=== PATIENT | male | born 2000 ===

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

== ENCOUNTER 2018-08-05 01:43 | Inpatient (IN) | payer SELFPAY ==
[2018-08-05 01:53] VITALS: O2SAT 99
[2018-08-05 02:16] LABS: BASO # 0.1 K/uL (0.0-0.2); BASO % 0.2 % (0.0-2.0); HEMOGLOBIN 15.5 g/dL (12.0-18.0); LYMPH # 1.6 K/uL (1.0-4.3); LYMPH % 7.8 % (20.0-40.0); MEAN CELL VOLUME 91.1 fL (80.0-94.0); MEAN CORPUSCULAR HEMOGLOBIN 29.7 pg (27.0-31.0); MEAN CORPUSCULAR HGB CONC 32.6 g/dL (33.0-37.0); MEAN PLATELET VOLUME 8.3 fL (7.2-11.7); MONO # 0.9 K/uL (0.0-0.8); MONO % 4.1 % (0.0-10.0); NEUT # 18.2 K/uL (1.8-7.0); NEUT % 87.9 % (50.0-75.0); PLATELET COUNT 389 K/uL (130-400); RBC 5.23 Mil/uL (4.40-5.90); RED CELL DISTRIBUTION WIDTH 13.6 % (11.5-14.5); WHITE BLOOD COUNT 20.8 K/uL (4.8-10.8)
[2018-08-05 02:27] LABS: ALB/GLOB RATIO 1.8 (1.0-2.1); ALBUMIN 5.4 g/dL (3.5-5.0); ALT/SGPT 96 U/L (21-72); AST/SGOT 64 U/L (17-59); BLOOD UREA NITROGEN 14 mg/dL (9-20); CALCIUM 9.6 mg/dl (8.6-10.4); GFR NON-AFRICAN AMERICAN > 60
[2018-08-05 02:43] LABS: BASOPHIL 1 % (0-2); LYMPHOCYTE 9 % (20-40); METAMYELOCYTE 1 % (0-0); MONOCYTE 3 % (0-10); NEUTROPHIL 85 % (50-75); PLATELET ESTIMATE NORMAL (NORMAL); REACTIVE LYMPHOCYTES 1 % (0-0); TOTAL CELLS COUNTED 100
[2018-08-05] MEDS ORDERED: Sodium Chloride 0.9% 1,000 ML IV ONE ×3 (03:06→07:12)
[2018-08-05] MEDS ORDERED: Potassium Chloride 20 mEq ER Tab PO STA (03:07)
--- NOTE | 2018-08-05 03:54 | C.PDOC ---
History Of Present Illness 18 year old male presents to the ER stating he is depressed and feels like he wants to hurt himself. Pt denies any attempts. Patient admits to substance abuse but will not say what. Denies chest pain, SOB, headache, weakness, or trauma. <Carmen Murphy - Last Filed: 08/05/18 07:02> History Per: Patient History/Exam Limitations: no limitations Onset/Duration Of Symptoms: Hrs Current Symptoms Are (Timing): Still Present Suicide/Self Injury Attempted (Context): None Modifying Factor(s): Other Associated Symptoms: Depression, Suicidal Thoughts Involuntary Hold By: None Recent travel outside of the [place]: No <Carmen Murphy - Last Filed: 08/05/18 07:02> <Clemencia De Leon - Last Filed: 08/05/18 10:25> Time Seen by Provider: 08/05/18 01:56 Chief Complaint (Nursing): Psychiatric Evaluation Past Medical History Reviewed: Historical Data, Nursing Documentation, Vital Signs Vital Signs: Last Vital Signs Temp 98.4 F 08/05/18 01:50 Pulse 140 H 08/05/18 01:50 Resp 22 08/05/18 01:50 BP 161/84 H 08/05/18 01:50 Pulse Ox 99 08/05/18 01:50 - Medical History PMH: Seizures Family History: States: Unknown Family Hx - Social History Hx Alcohol Use: Yes Hx Substance Use: No - Immunization History Hx Tetanus Toxoid Vaccination: No Hx Influenza Vaccination: No Hx Pneumococcal Vaccination: No <Carmen Murphy - Last Filed: 08/05/18 07:02> Vital Signs: Last Vital Signs Temp 98.5 F 08/05/18 08:54 Pulse 132 H 08/05/18 10:13 Resp 24 08/05/18 08:54 BP 128/77 08/05/18 08:54 Pulse Ox 99 08/05/18 08:54 <Clemencia De Leon - Last Filed: 08/05/18 10:25> Review Of Systems Constitutional: Negative for: Fever, Chills Cardiovascular: Positive for: Palpitations. Negative for: Chest Pain Respiratory: Negative for: Cough, Shortness of Breath Gastrointestinal: Negative for: Vomiting, Abdominal Pain Musculoskeletal: Negative for: Neck Pain Neurological: Negative for: Weakness, Headache Psych: Positive for: Anxiety, Depression, Suicidal ideation <Adarsh Murphyele - Last Filed: 08/05/18 07:02> Physical Exam - Physical Exam Appears: Non-toxic, Other (Staring into space, not answering questions fully gives vague answers) Skin: Normal Color, Warm, Dry Head: Atraumatic, Normacephalic Eye(s): bilateral: Normal Inspection, PERRL, EOMI Oral Mucosa: Moist Throat: Normal, No Erythema, No Exudate Neck: Normal, Supple Chest: Symmetrical, No Tenderness Cardiovascular: Rhythm Regular (Tachycardic) Respiratory: Normal Breath Sounds, No Rales, No Rhonchi, No Wheezing Gastrointestinal/Abdominal: Soft, No Tenderness Extremity: Normal ROM Extremity: Bilateral: Atraumatic Neurological/Psych: Oriented x3, Normal Speech Gait: Steady <Carmen Murphy - Last Filed: 08/05/18 07:02> ED Course And Treatment - Laboratory Results Result Diagrams: 08/05/18 02:12 08/05/18 02:12 ECG: Interpreted By Me, Viewed By Me ECG Rhythm: Sinus Tachycardia ECG Interpretation: Normal Rate From EC O2 Sat by Pulse Oximetry: 99 (Room air) Pulse Ox Interpretation: Normal Progress Note: Labs sent. Crisis notifed. IV ativan administered. Patient found to have potassium of 3.1, po potassium administered, and elevated white count possibly due to stress. <Carmen Murphy - Last Filed: 08/05/18 07:02> - Laboratory Results Result Diagrams: 08/05/18 02:12 08/05/18 02:12 <Clemencia De Leon - Last Filed: 08/05/18 10:25> Medical Decision Making Medical Decision Makin Patient received as sign out pending labs, crisis eval and dispo. Patient was on 1:1 observation and remained alert and oriented sitting comfortably in room in no distress. IV fluids given. Labs reviewed and UDS +cannabis otherwise no other acute findings. He remained sinus tachycardia, but normal blood pressure and hemodynamically stable. Contact mop worker for evaluation 0900 PES reviewed case with DR Ackerman and per his recommendations the patient to be admitted to psych for adjustment disorder <Clemencia De Leon - Last Filed: 08/05/18 10:25> Disposition - Disposition Disposition Time: 07:03 <Carmen Murphy - Last Filed: 08/05/18 07:02> <Clemencia De Leon - Last Filed: 08/05/18 10:25> - Disposition Condition: STABLE - Clinical Impression Clinical Impression: Tachycardia, Dehydration, Substance abuse, Suicidal ideation - PA / APIARIST / Resident Statement MD/DO has reviewed & agrees with the documentation as recorded. - Scribe Statement The provider has reviewed the documentation as recorded by the Scribe Dm Chopra All medical record entries made by the Angyibnino were at my direction and personally dictated by me. I have reviewed the chart and agree that the record accurately reflects my personal performance of the history, physical exam, medical decision making, and the department course for this patient. I have also personally directed, reviewed, and agree with the discharge instructions and disposition. <Carmen Murphy - Last Filed: 08/05/18 07:02> Physician Patient Turnover Patient Signed Over To: Clemencia De Leon Handoff Comments: Pending UDS, labs and medicine admit if persistent tachycardia otherwise psych admission as indicated <Carmen Murphy - Last Filed: 08/05/18 07:02>
[2018-08-05] MEDS ORDERED: Potassium Chloride 20 mEq ER Tab PO ONE (04:37)
[2018-08-05 06:34] LABS: SQUAMOUS EPITHIAL < 1 /hpf (0-5); URINE BILIRUBIN NEGATIVE (NEGATIVE); URINE BLOOD NEGATIVE (NEGATIVE); URINE CLARITY Clear (Clear); URINE COLOR Yellow (YELLOW); URINE GLUCOSE (UA) 2+ mg/dL (Normal); URINE LEUKOCYTE ESTERASE NEG Leu/uL (Negative); URINE PROTEIN NEGATIVE (NEGATIVE); URINE UROBILINOGEN NORMAL mg/dL (0.2-1.0)
[2018-08-05 06:43] LABS: BARBITURATES, UR NEGATIVE (NEGATIVE); BENZODIAZEPINES, UR NEGATIVE (NEGATIVE); OPIATES, UR NEGATIVE (NEGATIVE); PHENCYCLIDINE, UR NEGATIVE (NEGATIVE)
[2018-08-05 07:03] LABS: ACETAMINOPHEN < 10.0 ug/mL (10.0-30.0); SALICYLATE < 1.0 mg/dL 1
[2018-08-05] MEDS ORDERED: DiphenhydrAMINE 50 mg/ml Inj IM PRN (10:42)
--- NOTE | 2018-08-05 10:48 | PCM.PSYCH ---
Initial Psychiatric Evaluation - Initial Psychiatric Evaluation Type of Admission: Voluntary Legal Status: Capacity Chief Complaint (in patient's own words): I am feeling okay." History of Present Illness and Precipitating Events: This is a 18 year old unemployed single male, who was escorted to the ED by EMS, as his friend called the ambulance because the patient made a suicidal statement that I am going to stab myself. Patient remained superficially cooperative but guarded with the details. He appeared very disorganized and internally preoccupied. As per the ED note, patient initially denied any suicidal statements, however, later on patient admitted to suicidal thoughts. Patient denies any past history of any inpatient psychiatric hospitalizations and denies any history of follow-up with any psychiatrist. He denies any history of follow-up with any therapist. Patient appears very disorganized and internally preoccupied throughout the interview. He appears paranoid, scared and delusional. He kept looking around suspiciously. As per staff since the patient came to the unit he is trying to elope and he is looking at everyone suspiciously. He appears internally preoccupied and appears to be responding to internal stimuli. He reports at times depressed mood, feelings of hopelessness and helplessness and worthlessness. He also reports poor sleep and poor appetite. He reports to smoking.. However he denies any drinking or any substance abuse. As per collateral, patient's mother, reported that patient has no psychiatric history but that he has a history of emotional stress which sometimes makes him have suicidal thoughts. Patient's mother reported that patient is in a unhealthy relationship with his child's mother and that he has been having a lot of emotional issues recently. Past medical history None reported Current Medications: Active Medications Generic Name Dose Route Start Last Admin Trade Name Freq PRN Reason Stop Dose Admin Diphenhydramine HCl 50 mg 08/05/18 10:42 Benadryl IM Q6 PRN Other Haloperidol Lactate 5 mg 08/05/18 10:42 Haldol IM Q6 PRN Agitation Lorazepam 2 mg 08/05/18 10:45 Ativan IM Q6H PRN Anxiety Past Psychiatric History - Past Psychiatric History Previous Treatment History: None Pertinent Medical Hx (Current Medical&Sleep Prob, Allergies): Allergies Allergy/AdvReac Type Severity Reaction Status Date / Time No Known Allergies Allergy Verified 08/05/18 05:18 No Known Home Med 11/22/16 Review of Systems - Review of Systems All systems: reviewed and no additional remarkable complaints except - Psychiatric Psychiatric: Anxiety, Irritability, Panic Attacks, Paranoia, Suicidal Ideation Mental Status Examination - Personal Presentation Personal Presentation: Looks stated age - Affect Affect: Broad - Motor Activity Motor Activity: Psychomotor Agitation - Reliability in Providing Information Reliability in Providing Information: Poor, due to alteration in thoughts, Poor, due to altered mood - Speech Speech: Disorganized - Mood Mood: Anxious - Formal Thought Process Formal Thought Process: Delusions, Paranoia, Loosening of associations, Flight of ideas - Cognitive Functions Orientation: Person, Place, Situation, Time Sensorium: Alert Attention/Concentration: Attentive Abstract Thinking: [place] Estimate of Intelligence: Below average Judgement: Imparied, as evidence by: Poor judgement, Imparied, as evidence by: Lack of insight into illness - Risk Risk: Suicidal, Diminished functioning - Limitations Limitations: Living alone DSM 5 DX - DSM 5 DSM 5 Diagnosis: Brief psychotic disorder Rule out cannabis induced psychotic disorder with delusions - Recommended/Plan of Treatment Treatment Recommendations and Plan of Treatment: Brief psychotic disorder Rule out cannabis induced psychotic disorder with delusions CBT Psychoeducation Supportive therapy Haldol 5 g p.o. twice daily Klonopin 1 mg p.o. 3 times daily Hydroxyzine 25 mg p.o. every 6 hours as needed Haldol 5 mg p.o. every 6 hours as needed
--- NOTE | 2018-08-05 11:34 | PCM.BM ---
<Lo Thomson - Last Filed: 08/05/18 11:32> Treatment Plan Problems - Problems identified on initial assessmt anxiety Date Initiated: 08/05/18 Time Initiated: 11:32 Assessment reference: NA Status: Active psychosis Date Initiated: 08/05/18 Time Initiated: 11:33 Assessment reference: NA Status: Active Treatment assets and liabiliti Patient Assests: physically healthy, good support system Patient Liabilities: relationship conflicts, substance abuse - Milieu Protocol Maintain good personal hygiene: daily Encourage regular showers Conduct patient checks and document Observation sheet: Q15 minutes Maintain personal safety: every shift Educate patient to report safety concerns to staff, every shift Monitor environment for contraband/sharps Medication safety: Monitor for expected outcome, potential side effects: every shift, Assess barriers to learning: every shift, Assess readiness for medication education: every shift <Morenita Ackerman - Last Filed: 08/07/18 11:31> - Diagnosis (1) Psychosis Status: Acute Interventions: 08/07/18 11:31 * Assess/adjust medications daily and /or as needed * See patient on an individual basis 7x/week to assess status of hallucinations * Discuss risks, benefits, side effects and alternatives of medications * <Berta Hernandez - Last Filed: 08/07/18 11:49> Family Contact Family involvement: Family/SO is involved Family contact: Family has been contacted by patient - Goals for Treatment Patient goals for treatment: "I want to go to an outpatient program. Discharge/Continuing Care - Education Needs Education Needs: Patient Medication, Patient Diagnosis/Disease Process, Patient Coping Skills, Patient Placement options, Patient Community resources - Discharge Discharge Criteria: Free of Suicidal thoughts, Free of Homicidal thoughts, Free of paranoid thoughts, Normal sleep pattern, Ability to care for self, No longer exhibiting s/s of withdrawal, Reduction of target symptoms Discharge to:: Home, With Family - Treatment Team Participation Discussed with Family/SO: No Was Patient/Family/SO present at Treatment Team Meeting: Yes
[2018-08-05 16:49] LABS: ALB/GLOB RATIO 1.9 (1.0-2.1); ALBUMIN 4.7 g/dL (3.5-5.0); ALT/SGPT 80 U/L (21-72); AST/SGOT 41 U/L (17-59); BLOOD UREA NITROGEN 6 mg/dL (9-20); CALCIUM 9.5 mg/dl (8.6-10.4); GFR NON-AFRICAN AMERICAN > 60
--- NOTE | 2018-08-06 08:35 | PCM.PYCHPN ---
Psychiatric Progress Note - Psychiatric Progress Note Patient seen today, length of contact: 16 min Patient Chief Complaint: I was feeling paranoid. " Problems Identified/Issues Discussed: Patient was seen and evaluated, chart reviewed and discussed with the staff. Patient remained paranoid and delusional. He still appears suspicious and scared. He still believes that someone from outside can come here to kill him. However he denies any auditory or visual hallucinations. He denies any suicidal ideation or any homicidal ideation. He is taking medication and denies any side effects. Supportive therapy was given. Medication Change: Yes Medical Record Reviewed: Yes Mental Status Examination - Cognitive Function Orientation: Person, Place, Situation, Time Memory: Intact Attention: WNL Concentration: Poor Association: Loose Fund of Knowledge: Poor - Mood Mood: Anxious - Affect Affect: Broad - Speech Speech: Soft - Formal Thought Process Formal Thought Process: Delusions, Paranoia, Loosening of associations, Flight of ideas - Suicidal Ideation Suicidal Ideation: No - Homicidal Ideation Homicidal Ideation: No Goal/Treatment Plan - Goal/Treatment Plan Need for Continued Stay: Severe depression anxiety Progress Toward Problem(s) and Goals/Treatment Plan: Brief psychotic disorder Rule out cannabis induced psychotic disorder with delusions CBT Psychoeducation Supportive therapy Haldol 5 g p.o. twice daily Klonopin 1 mg p.o. 3 times daily Hydroxyzine 25 mg p.o. every 6 hours as needed Haldol 5 mg p.o. every 6 hours as needed - Smoking Cessation Smoking Cessation Initiated: No
[2018-08-07 06:32] VITALS: BP 114/65; PULSE 93; RESP 19; TEMP 98.3
--- NOTE | 2018-08-07 10:58 | PCM.PYCHDC ---
Mental Status Examination - Mental Status Examination Orientation: Person, Place, Situation, Time Memory: Intact Mood: Neutral Affect: Constricted Speech: Soft Attention: WNL Concentration: WNL Association: WNL Fund of Knowledge: WNL Formal Thought Process: No Impairment Description of patient's judgement and insight: good, fair Psychotic Thoughts and Behaviors: denies any AVH Suicidal Ideation: No Current Homicidal Ideation?: No Discharge Summary - Discharge Note Reason for Hospitalization: This is a 18 year old unemployed single male, who was escorted to the ED by EMS, as his friend called the ambulance because the patient made a suicidal statement that I am going to stab myself. Patient remained superficially cooperative but guarded with the details. He appeared very disorganized and internally preoccupied. As per the ED note, patient initially denied any suicidal statements, however, later on patient admitted to suicidal thoughts. Patient denies any past history of any inpatient psychiatric hospitalizations and denies any history of follow-up with any psychiatrist. He denies any histo ry of follow-up with any therapist. Patient appears very disorganized and internally preoccupied throughout the interview. He appears paranoid, scared and delusional. He kept looking around suspiciously. As per staff since the patient came to the unit he is trying to elope and he is looking at everyone suspiciously. He appears internally preoccupied and appears to be responding to internal stimuli. He reports at times depressed mood, feelings of hopelessness and helplessness and worthlessness. He also reports poor sleep and poor appetite. He reports to smoking.. However he denies any drinking or any substance abuse. As per collateral, patient's mother, reported that patient has no psychiatric history but that he has a history of emotional stress which sometimes makes him have suicidal thoughts. Patient's mother reported that patient is in a unhealthy relationship with his child's mother and that he has been having a lot of emotional issues recently. Consultations:: List each consultation separately and include: 1. Reason for request. 2. Findings. 3. Follow-up Summary of Hospital Course include:: 1. Description of specific treatment plan utilized for patients during their course of treatmen. 2. Summarize the time- course for resolution of acute symptoms and/or regressed behaviors. 3. Describe issues identified and worked on during hospitalization. 4. Describe medication utilized. 5. Describe medical problems identified and treated. 6. Reassessment of suicide risk Summary of Hospital Course: During the course of his stay, patient (pt) started progressively improving and no longer remained irritable, depressed, and paranoid. His mood and anxiety were improved and he started attending groups and meetings and started socializing. Patient denied any feelings of hopelessness, helplessness, and worthlessness, denied any problem with the sleep or appetite, denied suicidal ideation or homicidal ideation. Pt denied any auditory or visual hallucinations. He denied any withdrawal symptoms. Pt was treated with medications along with supportive therapy, milieu therapy and group therapy. Some changes were made in his current medications and patient was discharged on following medications. He tolerated these medications very well and denied any side effects. - Final Diagnosis (DSM 5) Condition upon Discharge: STABLE DSM 5: Brief psychotic disorder Rule out cannabis induced psychotic disorder with delusions Disposition: HOME/ ROUTINE Follow-up Treatment Plan: Followup: He was discharged to the [facility]. Education: Pt was educated and counseled about the risks and benefits of taking and not taking medications. Pt was educated and counseled about the risks of drinking and abusing drugs. Pt was educated and counseled to go to the ER or call 911 if pt develop suicidal ideation or homicidal ideation, worsening of symptoms or severe side effects of the meds. Prescriptions/Medication Reconciliation: Benztropine [Cogentin] 1 mg PO BID #60 tab Haloperidol [Haldol] 5 mg PO BID #60 tab hydrOXYzine HCl [Atarax] 25 mg PO BID PRN #60 tab PRN Reason: Agitation - Smoking Cessation Smoking Cessation Medication prescribed: No - Antipsychotic Medications Pt discharged on 2 or more routine antipsychotic medications: No
--- NOTE | 2018-08-07 13:31 | CARD ---
APPROVED REPORT Date of service: 08/05/2018 EKG Measurement Heart [id number] <Conclusion> Sinus tachycardia Otherwise normal ECG
[2018-08-08] MEDS ORDERED: Influenza Vaccine 60 MCG/0.5 ML SYR (3 yr & up) IM ONE (10:00)
== END 2018-08-07 11:40 | disposition home or self-care (01) | DRG 885 ==
LOC: C.ER 01:43 → C.9E 09:15 → C.5E 10:09
PROVIDERS: ADMIT Psychiatry & Neurology Psychiatry; ATTEND Psychiatry & Neurology Psychiatry
PROC: GZ58ZZZ Individual Psychotherapy, Cognitive-Behavioral (ICD-10-PCS; principal; 2018-08-05)
PROC: GZ56ZZZ Individual Psychotherapy, Supportive (ICD-10-PCS; 2018-08-05)
DX: F23 Brief psychotic disorder (principal); R45.851 Suicidal ideations; F43.22 Adjustment disorder with anxiety; E86.0 Dehydration; F12.159 Cannabis abuse with psychotic disorder, unspecified; F24 Shared psychotic disorder